=== PATIENT | female | born 1950 ===

== ENCOUNTER 2019-06-14 07:50 | Day surgery (SDC) | payer OTHER | END 2019-06-14 12:00 | disposition home or self-care (01) | LOC: AMB-ENDOS 07:50 → ADM 14:15 → EDBD 14:15 → AMB-ENDOS 14:15 | DX: C20 Malignant neoplasm of rectum (principal); K57.30 Diverticulosis of large intestine without perforation or abscess without bleeding ==

== ENCOUNTER 2019-09-23 09:45 | Inpatient (IN) | payer OTHER ==
[~2019-09-23] VITALS: Ht 165.1 cm; Wt 58.1 kg
[2019-09-26] MEDS ORDERED: LIBRAX PO (13:55)
[2019-09-26] MEDS ORDERED: PRILOSEC OTC20 MG PO (13:56)
[2019-09-26] MEDS ORDERED: FOLIC ACID PO (13:57)
[2019-09-26] MEDS ORDERED: LOSARTAN POTASS25 MG PO (13:57)
[2019-09-26] MEDS ORDERED: CLONAZEPAM0.5 MG PO (13:58)
[2019-09-26] MEDS ORDERED: VITAMIN C100 MG PO (13:58)
[2019-09-26] MEDS ORDERED: [UNRECOGNIZED DRUG - REMARK] PO (13:59)
[2019-09-26] MEDS ORDERED: DERMACINRX5000 UNIT PO (14:00)
[2019-09-30] MEDS ORDERED: VITAMIN C500 M6 PO (09:16)
[2019-09-30] MEDS ORDERED: FOLIC ACID20 MG PO (09:17)
[2019-09-30] MEDS ORDERED: CHLORDIAZEPOXI1 EACH PO (09:19)
[2019-09-30] MEDS ORDERED: INTESTINEX680 M1 PO (09:19)
[2019-10-02] MEDS ORDERED: HYOSCYAMINE0.125 M1 SL (12:28)
[2019-10-02] MEDS ORDERED: TRAMADOL HCL50 MG PO (12:30)
== END 2019-10-02 13:49 | disposition home or self-care (01) | DRG 330 ==
LOC: SURH 09-29 09:11 → O/R 09-29 09:11 → SURH 09-29 09:45 → O/R 09-29 09:45 → SURH 09-29 14:15
PROVIDERS: ADMIT Surgery; ATTEND Surgery
PROC: 0DBN4ZZ Excision of Sigmoid Colon, Percutaneous Endoscopic Approach (ICD-10-PCS; 2019-09-29)
PROC: 07BC4ZX Excision of Pelvis Lymphatic, Percutaneous Endoscopic Approach, Diagnostic (ICD-10-PCS; 2019-09-29)
PROC: 0DTP4ZZ Resection of Rectum, Percutaneous Endoscopic Approach (ICD-10-PCS; principal; 2019-09-29 14:15)
DX: C19 Malignant neoplasm of rectosigmoid junction (principal); D62 Acute posthemorrhagic anemia; I13.10 Hypertensive heart and chronic kidney disease without heart failure, with stage 1 through stage 4 chronic kidney disease, or unspecified chronic kidney disease; N18.3 Chronic kidney disease, stage 3 (moderate); F41.9 Anxiety disorder, unspecified; E83.39 Other disorders of phosphorus metabolism

== ENCOUNTER 2020-07-17 10:55 | Day surgery (SDC) | payer OTHER ==
[~2020-07-17 10:55] MED LIST: CHLORDIAZEPOXI1 EACH PO; CLONAZEPAM0.5 MG PO; DERMACINRX5000 UNIT PO; FOLIC ACID PO; FOLIC ACID20 MG PO; HYOSCYAMINE0.125 M1 SL; INTESTINEX680 M1 PO; LIBRAX PO; LOSARTAN POTASS25 MG PO; PRILOSEC OTC20 MG PO; TRAMADOL HCL50 MG PO; VITAMIN C100 MG PO; VITAMIN C500 M6 PO; [UNRECOGNIZED DRUG - REMARK] PO
== END 2020-07-17 15:10 | disposition home or self-care (01) ==
LOC: AMB-ENDOS 10:55
PROVIDERS: ATTEND Surgery
DX: K62.89 Other specified diseases of anus and rectum (principal); Z93.3 Colostomy status; Z20.822 Contact with and (suspected) exposure to COVID-19